=== PATIENT | female | born 1980 | race Asian ===

== ENCOUNTER 2017-03-18 12:58 | Emergency (ER) | payer OTHER ==
[~2017-03-18] VITALS: Ht 162.6 cm; Wt 48.3 kg
[2017-03-18] MEDS ORDERED: SODIUM CHLORIDE 0.9% 1,000ML IVBOLUS ONE (14:30)
[2017-03-18] MEDS ORDERED: SODIUM CHLORIDE FLUSH 10ML SYR IVF ONE (14:30)
[2017-03-18] MEDS ORDERED: ONDANSETRON 2MG/ML, 2ML IVPush ONE (14:30)
[2017-03-18] MEDS ORDERED: ONDANSETRON 2MG/ML, 2ML ONE (14:36)
[2017-03-18 14:54] LABS: HEMATOCRIT 43.2 % (34.6-47.8); HEMOGLOBIN 14.3 g/dL (11.7-16.4); WHITE BLOOD COUNT 11.4 x10^3/uL (3.4-10)
[2017-03-18 14:56] VITALS: BP 100/73
[2017-03-18 14:57] LABS: DIFF TOTAL CELLS COUNTED 100 CELL DIFF
[2017-03-18 15:01] LABS: ASPARTATE AMINO TRANSFERASE 22 U/L (15-37); BLOOD UREA NITROGEN 13 mg/dL (7-18)
[2017-03-18 15:20] LABS: VERIFY COUNTS? YES
== END 2017-03-18 17:30 | disposition home or self-care (01) ==
LOC: ED 17:14
DX: R11.2 Nausea with vomiting, unspecified (principal); D72.829 Elevated white blood cell count, unspecified
CPT/HCPCS: 36415; 80053; 81001; 83690; 84703; 85025; 96361; 96374; 99284; J2405; J7030